=== PATIENT | female | born 1995 | race Two or more races ===

== ENCOUNTER 2017-10-21 15:22 | Emergency (ER) | payer SELFPAY ==
[~2017-10-21] VITALS: Ht 167.6 cm; Wt 68.0 kg
[2017-10-21 16:38] VITALS: BP 122/71
== END 2017-10-21 23:24 | disposition left against medical advice (07) ==
LOC: ER 15:22
DX: H53.8 Other visual disturbances (principal)
CPT/HCPCS: 99281

== ENCOUNTER 2018-11-24 05:04 | Emergency (ER) | payer SELFPAY ==
[~2018-11-24] VITALS: Ht 188 cm; Wt 100.0 kg
[2018-11-24] MEDS ORDERED: IBUPROFEN 800MG TABLET PO ONE (06:45)
[2018-11-24] MEDS ORDERED: TETANUS, DIPHTHERIA, PERTUSSIS VAC/PF 0.5ML (>7YR OLD) IM ONE (06:45)
[2018-11-24 13:39] VITALS: BP 97/42
== END 2018-11-24 13:44 | disposition home or self-care (01) ==
LOC: ER 05:04
DX: S90.512A Abrasion, left ankle, initial encounter (principal); S70.212A Abrasion, left hip, initial encounter; S50.812A Abrasion of left forearm, initial encounter; S60.812A Abrasion of left wrist, initial encounter; F17.210 Nicotine dependence, cigarettes, uncomplicated; V98.8XXA Other specified transport accidents, initial encounter; Y93.39 Activity, other involving climbing, rappelling and jumping off; Y92.89 Other specified places as the place of occurrence of the external cause; Y99.8 Other external cause status
CPT/HCPCS: 71045; 73030; 73090; 73110; 73502; 73552; 73610; 81025; 90471; 90715; 99283; 99406